=== PATIENT | female | born 1955 | race Caucasian/White ===

== ENCOUNTER 2018-04-10 06:53 | Day surgery (SDC) | payer OTHER ==
[2018-04-10] MEDS ORDERED: PROPOFOL 80 ML (09:48)
[2018-04-10] MEDS ORDERED: LIDOCAINE 2% (SDV) 5 ML INJ (09:49)
== END 2018-04-10 11:08 | disposition home or self-care (01) ==
LOC: GIL 06:53
DX: Z12.11 Encounter for screening for malignant neoplasm of colon (principal); K29.30 Chronic superficial gastritis without bleeding; K57.90 Diverticulosis of intestine, part unspecified, without perforation or abscess without bleeding; K64.4 Residual hemorrhoidal skin tags
CPT/HCPCS: 43239; 88305; 88313